=== PATIENT | female | born 1970 | race African-American/Black ===

== ENCOUNTER 2021-11-02 01:38 | Emergency (ER) | payer BC ==
[~2021-11-02] VITALS: Ht 172.7 cm; Wt 79.4 kg
[2021-11-02] MEDS ORDERED: PRINIVIL40 MG PO (01:56)
[2021-11-02] MEDS ORDERED: MELOXICAM15 MG PO (01:57)
[2021-11-02] MEDS ORDERED: HYDROCHLOROTH12.5 M2 PO (01:57)
[2021-11-02 02:32] LABS: HEMOGLOBIN 13.6 gm/dL (12.0-15.0); MCH 31.1 pg (26.0-34.0); MCV 91.6 fL (80.0-100.0); RBC 4.37 mil/uL (4.20-5.00); RDW 13.4 % (10.5-14.5); WBC 7.8 thou/uL (4.0-11.0)
[2021-11-02 02:34] LABS: CALCIUM 8.5 mg/dL (8.5-10.1); CREATININE 1.1 mg/dL (0.6-1.0)
[2021-11-02] MEDS ORDERED: TOPROL XL25 MG PO (02:49)
[2021-11-02 03:00] VITALS: BP 187/114
--- NOTE | 2021-11-02 07:50 | EKG ---
[facility] [place] [address] ELECTROCARDIOGRAM REPORT Name: ABBY KIMBLE JOVAN Room #: DEP [facility]#: [id number] Admission: 11/02/21 Attend Phys: Discharge: 11/02/21 Date of : 68 Report #: [id number] [facility] ED Test Date: 2021-11-02 Test Time: 01:58:52 Pat Name: ABBY KIMBLE Department: Room: Gender: F Veterinary Receptionist: Jocelyn : 1970 Requested By: Michael Vickers Order Number: [id number] MD: Matt Richey Measurements Intervals [place] Rate: 92 P: 43 [place]: 192 QRS: -41 QRSD: 94 T: -7 QT: 360 QTc: 446 Interpretive Statements Sinus rhythm Probable left atrial enlargement Abnormal R-wave progression, late transition Inferior infarct, age indeterminate Baseline wander in lead(s) V5,V6 No previous ECG available for comparison Electronically Signed On 11-02-2021 7:50:20 [employer]IESEL MAINTENANCE TECHNICIAN by Matt Richey [email or web address] <ELECTRONICALLY SIGNED> By: Matt Richey MD, [facility] 11/02/21 [id number] Matt Richey MD, FACC /EPI
== END 2021-11-02 03:00 | disposition home or self-care (01) ==
LOC: ER 01:38
PROVIDERS: Emergency Medicine
DX: I10 Essential (primary) hypertension (principal); M79.605 Pain in left leg; E87.6 Hypokalemia; Z79.899 Other long term (current) drug therapy